=== PATIENT | female | born 1990 | race Caucasian/White ===

== ENCOUNTER → 2022-11-18 17:25 | Outpatient (CLI) | payer OTHER, MEDICAID, SELFPAY ==
--- NOTE | 2022-11-18 17:29 | DI.RAD.S_ITS ---
PROCEDURE: XR ANKLE LT MIN 3V INDICATIONS: Rolled left ankle TECHNIQUE: 3 views of the ankle were acquired. COMPARISON: None. FINDINGS: Bones: No fractures or dislocations. Ankle mortise is normally aligned. No suspicious bony lesions. The talar dome demonstrates no joel abnormality. Incidental note is made of an accessory ossicle, an os trigonum. Soft tissues: No tibiotalar joint effusion. Achilles tendon appears normal. IMPRESSION: No significant plain film abnormality is seen. Dictated by: Tomy Power M.D. on 11/18/2022 at 20:42 Approved by: Tomy Power M.D. on 11/18/2022 at 20:43
== END ==
PROVIDERS: Visit Provider Physician Assistant
DX: M25.572 Pain in left ankle and joints of left foot (principal)
CPT/HCPCS: 73610